=== PATIENT | male | born 1960 | race African-American/Black ===

== ENCOUNTER 2017-01-06 03:31 | Emergency (ER) | payer OTHER ==
[~2017-01-06] VITALS: Ht 188 cm; Wt 111.0 kg
[~2017-01-06 03:31] MED LIST: ALLOPURINOL300 MG PO; AUGMENTIN500TAB PO; AUGMENTIN875 MG OR; CYCLOBENZAPR10 MG PO; DOESN'T KNOW NAMES; FLEXERIL PO; GLIPIZIDE ER5 MG PO; GLIPIZIDE XL10 MG PO; GLIPIZIDE5 M1 PO; GLUCOPHAGE500 MG PO; LISINOPRIL20 MG PO; LORTAB 7.5 OR; LOVASTATIN20 M1 PO; LOVASTATIN20 MG PO; METFORMIN1000 MG PO; NAPROSYN500 MG PO; RYBIX ODT50 MG PO; TORADOL PO; ULTRAM50 M1 PO; VALIUM5 MG PO; ZPAK PO
[2017-01-06] MEDS ORDERED: LORTAB 1010 MG PO (05:20)
[2017-01-06] MEDS ORDERED: FLEXERIL PO (05:20)
[2017-01-06 05:37] VITALS: BP 123/78
== END 2017-01-06 05:40 | disposition home or self-care (01) | DRG 563 ==
LOC: ED 03:31
DX: S39.012A Strain of muscle, fascia and tendon of lower back, initial encounter (principal); M47.816 Spondylosis without myelopathy or radiculopathy, lumbar region; M54.30 Sciatica, unspecified side; I10 Essential (primary) hypertension; E78.5 Hyperlipidemia, unspecified; E11.9 Type 2 diabetes mellitus without complications; M10.9 Gout, unspecified; X58.XXXA Exposure to other specified factors, initial encounter; Z85.528 Personal history of other malignant neoplasm of kidney

== ENCOUNTER 2018-06-16 12:10 | Emergency (ER) | payer OTHER ==
[~2018-06-16] VITALS: Ht 188 cm; Wt 100.0 kg
[~2018-06-16 12:10] MED LIST changes: +IBUPROFEN600 MG PO; +LORTAB 1010 MG PO; +MEDDOSEPAK PO
[2018-06-16 12:58] LABS: HEMOGLOBIN 13.4 g/dl (14.0-18.0); IMMATURE GRANULOCYTES 0.5 % (0.0-5.0); MEAN CELL VOLUME 79.8 fL CALC (80.0-100.0); MEAN CORPUSCULAR HGB 25.6 pG CALC (26.0-32.0); MEAN CORPUSCULAR HGB CONC 32.1 g/L CALC (32.0-36.0); NEUT# 6.95 thou/uL (1.82-7.42); RED BLOOD COUNT 5.24 mill/uL (4.70-6.10); RED CELL DISTRI WIDTH 14.4 % (11.5-15.5)
[2018-06-16 13:09] LABS: HEMATOCRIT 41.8 % (39.0-50.0)
[2018-06-16 13:12] LABS: ALBUMIN 4.6 g/dL (3.2-5.0); ALKALINE PHOSPHATASE 88 u/l (38-126); ANION GAP 19 (6-22 (CALC)); BUN 18 mg/dL (9-20); BUN/CREATININE RATIO 10 (12-20 (CALC)); CARBON DIOXIDE 21 mmol/l (22-30); CHLORIDE 104 mmol/l (95-108); CREATININE 1.7 mg/dL (0.7-1.3); GFR 42 ML/MIN (>=60 (CALC)); GFR FOR AFR.AMER. 50 ML/MIN (>=60 (CALC)); LIPASE 130 u/l (23-300); POTASSIUM 4.4 mmol/l (3.5-5.1); SGOT/AST 21 u/l (17-59); SODIUM 140 mmol/l (137-146); TOTAL PROTEIN 7.7 g/dL (6.3-8.2)
[2018-06-16 16:15] VITALS: BP 104/66
== END 2018-06-16 16:21 | disposition short-term general hospital (02) | DRG 312 ==
LOC: ED 12:10
PROVIDERS: Emergency Medicine
DX: R55 Syncope and collapse (principal); I95.9 Hypotension, unspecified; R00.0 Tachycardia, unspecified; E11.9 Type 2 diabetes mellitus without complications; I10 Essential (primary) hypertension

== ENCOUNTER 2020-04-23 07:46 | Emergency (ER) | payer OTHER ==
[~2020-04-23] VITALS: Ht 188 cm; Wt 101.0 kg
[2020-04-23] MEDS ORDERED: ATENOLOL25 MG PO (07:59)
[2020-04-23] MEDS ORDERED: TAMSULOSIN HCL0.4 MG PO (08:00)
[2020-04-23] MEDS ORDERED: ELIQUIS5 MG PO (08:00)
[2020-04-23] MEDS ORDERED: LISINOPRIL10 MG PO (08:00)
[2020-04-23] MEDS ORDERED: ALLOPURINOL100 MG PO (08:01)
[2020-04-23] MEDS ORDERED: EZALLOR SPRINKL20 MG PO (08:01)
[2020-04-23] MEDS ORDERED: CETIRIZINE10 MG PO (08:02)
[2020-04-23] MEDS ORDERED: [UNRECOGNIZED DRUG - OTHER] IN (08:02)
[2020-04-23 08:38] LABS: ALBUMIN 4.6 g/dL (3.2-5.0); ALKALINE PHOSPHATASE 106 u/l (38-126); ANION GAP 15 (6-22 (CALC)); BILIRUBIN, TOTAL 0.9 mg/dL (0.0-1.4); BUN 16 mg/dL (9-20); BUN/CREATININE RATIO 15 (12-20 (CALC)); CARBON DIOXIDE 25 mmol/l (22-30); CHLORIDE 99 mmol/l (95-108); CREATININE 1.1 mg/dL (0.7-1.3); GFR > 60 ML/MIN (>=60 (CALC)); GFR FOR AFR.AMER. > 60 ML/MIN (>=60 (CALC)); POTASSIUM 4.4 mmol/l (3.5-5.1); SGOT/AST 36 u/l (17-59); SODIUM 134 mmol/l (137-146); TOTAL PROTEIN 7.9 g/dL (6.3-8.2)
[2020-04-23 08:39] LABS: IMMATURE GRANULOCYTES 0.2 % (0.0-5.0); MEAN CELL VOLUME 75.9 fL CALC (80.0-100.0); MEAN CORPUSCULAR HGB 25.7 pG CALC (26.0-32.0); MEAN CORPUSCULAR HGB CONC 33.8 g/dL CAL (32.0-36.0); NEUT# 1.88 thou/uL (1.82-7.42); RED BLOOD COUNT 4.36 mill/uL (4.70-6.10); RED CELL DISTRI WIDTH 14.3 % (11.5-15.5)
[2020-04-23 08:41] LABS: HEMATOCRIT 33.1 % (39.0-50.0); HEMOGLOBIN 11.2 g/dl (14.0-18.0)
[2020-04-23 09:23] VITALS: BP 135/77
== END 2020-04-23 09:24 | disposition home or self-care (01) | DRG 93 ==
LOC: ED 07:46
PROVIDERS: Student in an Organized Health Care Education/Training Program
DX: R20.2 Paresthesia of skin (principal); I10 Essential (primary) hypertension; E11.9 Type 2 diabetes mellitus without complications; M10.9 Gout, unspecified; Z85.528 Personal history of other malignant neoplasm of kidney; Z79.84 Long term (current) use of oral hypoglycemic drugs

== ENCOUNTER 2020-09-16 03:14 | Emergency (ER) | payer OTHER ==
[~2020-09-16] VITALS: Ht 188 cm; Wt 100.0 kg
[~2020-09-16 03:14] MED LIST changes: +ALLOPURINOL100 MG PO; +ATENOLOL25 MG PO; +CETIRIZINE10 MG PO; +ELIQUIS5 MG PO; +EZALLOR SPRINKL20 MG PO; +LISINOPRIL10 MG PO; +TAMSULOSIN HCL0.4 MG PO; +[UNRECOGNIZED DRUG - OTHER] IN
[2020-09-16 04:20] LABS: HEMATOCRIT 32.6 % (39.0-50.0); HEMOGLOBIN 10.9 g/dl (14.0-18.0); MEAN CELL VOLUME 79.3 fL CALC (80.0-100.0); MEAN CORPUSCULAR HGB 26.5 pG CALC (26.0-32.0); MEAN CORPUSCULAR HGB CONC 33.4 g/dL CAL (32.0-36.0); NEUT# 1.77 thou/uL (1.82-7.42); RED BLOOD COUNT 4.11 mill/uL (4.70-6.10); RED CELL DISTRI WIDTH 13.7 % (11.5-15.5)
[2020-09-16 04:21] LABS: URINE BILIRUBIN - DIPSTICK NEGATIVE (NEGATIVE); URINE BLOOD DIPSTICK NEGATIVE (NEGATIVE); URINE COLOR YELLOW; URINE GLUCOSE - DIPSTICK NEGATIVE (NEGATIVE); URINE KETONE NEGATIVE (NEGATIVE); URINE LEUK ESTERASE NEGATIVE (NEGATIVE); URINE PH 5.5 (4.5-8.0); URINE PROTEIN - DIPSTICK NEGATIVE (NEG-TRACE); URINE UROBILINOGEN - DIPSTICK 0.2 E.U./dL (0.2)
[2020-09-16 04:25] LABS: URINE NITRITE - DIPSTICK NEGATIVE (Negative)
[2020-09-16 04:29] LABS: ALBUMIN 4.5 g/dL (3.2-5.0); ALKALINE PHOSPHATASE 74 u/l (38-126); ANION GAP 15 (6-22 (CALC)); BILIRUBIN, TOTAL 0.7 mg/dL (0.0-1.4); BUN 22 mg/dL (9-20); BUN/CREATININE RATIO 18 (12-20 (CALC)); CARBON DIOXIDE 26 mmol/l (22-30); CHLORIDE 99 mmol/l (95-108); CREATININE 1.2 mg/dL (0.7-1.3); GFR > 60 ML/MIN (>=60 (CALC)); GFR FOR AFR.AMER. > 60 ML/MIN (>=60 (CALC)); POTASSIUM 4.2 mmol/l (3.5-5.1); SGOT/AST 38 u/l (17-59); SODIUM 136 mmol/l (137-146); TOTAL PROTEIN 7.9 g/dL (6.3-8.2)
[2020-09-16 05:57] VITALS: BP 148/81
[2020-09-16] MEDS ORDERED: ORPHENADRINE100 MG PO (06:12)
[2020-09-16] MEDS ORDERED: IBUPROFEN600 MG PO (06:12)
== END 2020-09-16 06:25 | disposition home or self-care (01) | DRG 552 ==
LOC: ED 03:14
PROVIDERS: Emergency Medicine
DX: M54.5 Low back pain (principal); K66.0 Peritoneal adhesions (postprocedural) (postinfection); E11.9 Type 2 diabetes mellitus without complications; I10 Essential (primary) hypertension; M10.9 Gout, unspecified; Z79.84 Long term (current) use of oral hypoglycemic drugs; Z85.528 Personal history of other malignant neoplasm of kidney
CPT/HCPCS: Q9967

== ENCOUNTER 2020-12-08 09:29 | Day surgery (SDC) | payer OTHER ==
[~2020-12-08] VITALS: Ht 188 cm; Wt 99.8 kg
[~2020-12-08 09:29] MED LIST changes: +GLIPIZIDE ER10 M1 PO; +ORPHENADRINE100 MG PO; +VICTOZA18 MG/3 ML SC; +[UNRECOGNIZED DRUG - OTHER]; -[UNRECOGNIZED DRUG - OTHER] IN
[2020-12-08 12:23] VITALS: BP 150/94
== END 2020-12-08 11:48 | disposition home or self-care (01) | DRG 951 ==
LOC: ENDO 09:29
PROVIDERS: ATTEND Surgery
PROC: 0DBN8ZX Excision of Sigmoid Colon, Via Natural or Artificial Opening Endoscopic, Diagnostic (ICD-10-PCS; principal; 2020-12-08)
PROC: 0DBL8ZX Excision of Transverse Colon, Via Natural or Artificial Opening Endoscopic, Diagnostic (ICD-10-PCS; 2020-12-08)
DX: Z12.11 Encounter for screening for malignant neoplasm of colon (principal); D12.5 Benign neoplasm of sigmoid colon; D12.3 Benign neoplasm of transverse colon; K64.8 Other hemorrhoids; E11.9 Type 2 diabetes mellitus without complications; I10 Essential (primary) hypertension; Z79.84 Long term (current) use of oral hypoglycemic drugs

== ENCOUNTER 2020-12-12 01:34 | Emergency (ER) | payer OTHER ==
[~2020-12-12] VITALS: Ht 188 cm; Wt 101.0 kg
[2020-12-12 02:11] LABS: URINE BILIRUBIN - DIPSTICK NEGATIVE (NEGATIVE); URINE BLOOD DIPSTICK NEGATIVE (NEGATIVE); URINE COLOR YELLOW; URINE GLUCOSE - DIPSTICK 500 mg/dL (NEGATIVE); URINE KETONE NEGATIVE (NEGATIVE); URINE LEUK ESTERASE NEGATIVE (NEGATIVE); URINE PROTEIN - DIPSTICK NEGATIVE (NEG-TRACE); URINE SPECIFIC GRAVITY 1.015; URINE UROBILINOGEN - DIPSTICK 0.2 E.U./dL (0.2)
[2020-12-12 02:11] LABS: HEMATOCRIT 34.7 % (39.0-50.0); HEMOGLOBIN 11.5 g/dl (14.0-18.0); IMMATURE GRANULOCYTES 0.3 % (0.0-5.0); MEAN CORPUSCULAR HGB 26.5 pG CALC (26.0-32.0); MEAN CORPUSCULAR HGB CONC 33.1 g/dL CAL (32.0-36.0); NEUT# 1.63 thou/uL (1.82-7.42); RED BLOOD COUNT 4.34 mill/uL (4.70-6.10); RED CELL DISTRI WIDTH 14.1 % (11.5-15.5)
[2020-12-12 02:16] LABS: URINE NITRITE - DIPSTICK NEGATIVE (Negative)
[2020-12-12 02:27] LABS: ALBUMIN 4.6 g/dL (3.2-5.0); ALKALINE PHOSPHATASE 110 u/l (38-126); ANION GAP 14 (6-22 (CALC)); BILIRUBIN, TOTAL 0.8 mg/dL (0.0-1.4); BUN 19 mg/dL (9-20); BUN/CREATININE RATIO 16 (12-20 (CALC)); CARBON DIOXIDE 25 mmol/l (22-30); CHLORIDE 100 mmol/l (95-108); CREATININE 1.2 mg/dL (0.7-1.3); GFR > 60 ML/MIN (>=60 (CALC)); GFR FOR AFR.AMER. > 60 ML/MIN (>=60 (CALC)); POTASSIUM 4.2 mmol/l (3.5-5.1); SGOT/AST 25 u/l (17-59); SODIUM 135 mmol/l (137-146); TOTAL PROTEIN 7.6 g/dL (6.3-8.2)
[2020-12-12 02:38] LABS: MYOGLOBIN 34 ng/mL (0 - 121)
[2020-12-12 02:55] VITALS: BP 132/65
== END 2020-12-12 02:55 | disposition home or self-care (01) | DRG 639 ==
LOC: ED 01:34
PROVIDERS: Emergency Medicine
DX: E11.65 Type 2 diabetes mellitus with hyperglycemia (principal); I10 Essential (primary) hypertension; E78.00 Pure hypercholesterolemia, unspecified; Z79.84 Long term (current) use of oral hypoglycemic drugs

== ENCOUNTER 2022-08-11 22:35 | Emergency (ER) | payer OTHER ==
[~2022-08-11] VITALS: Ht 188 cm; Wt 108.0 kg
[2022-08-11 22:47] VITALS: BP 146/91
[2022-08-11 23:00] VITALS: BP 142/89
[2022-08-11 23:11] LABS: BASO% 0.6 % (0-3); EOS% 1.3 % (0-8); HEMATOCRIT 40.5 % (39.0-50.0); HEMOGLOBIN 13.4 g/dl (14.0-18.0); IMMATURE GRANULOCYTES 0.2 % (0.0-5.0); LYMPH% 14.2 % (15-41); MEAN CELL VOLUME 80.4 fL CALC (80.0-100.0); MEAN CORPUSCULAR HGB 26.6 pG CALC (26.0-32.0); MEAN CORPUSCULAR HGB CONC 33.1 g/dL CAL (32.0-36.0); MONO% 14.4 % (2-13); NEUT# 3.33 thou/uL (1.82-7.42); NEUT% 69.3 % (42-76); RED BLOOD COUNT 5.04 mill/uL (4.70-6.10)
[2022-08-11 23:15] VITALS: BP 145/90
[2022-08-11 23:21] LABS: ALBUMIN 4.8 g/dL (3.2-5.0); ALKALINE PHOSPHATASE 75 u/l (38-126); ANION GAP 14 (6-22 (CALC)); BILIRUBIN, TOTAL 1.1 mg/dL (0.2-1.3); BUN 18 mg/dL (8-23); BUN/CREATININE RATIO 13 (12-20 (CALC)); CARBON DIOXIDE 24 mmol/l (22-30); CHLORIDE 102 mmol/l (95-108); CREATININE 1.4 mg/dL (0.7-1.3); GFR FOR AFR.AMER. > 60 ML/MIN (>=60 (CALC)); GFR OTHER RACES 51 ML/MIN (>=60 (CALC)); POTASSIUM 4.4 mmol/l (3.5-5.1); SGOT/AST 28 u/l (19-48); SODIUM 136 mmol/l (137-146); TOTAL PROTEIN 7.9 g/dL (6.3-8.2)
[2022-08-11 23:30] VITALS: BP 141/93
[2022-08-11 23:45] VITALS: BP 145/90
[2022-08-11] MEDS ORDERED: PAXLOVID PO (23:49)
[2022-08-11 23:53] VITALS: BP 145/90
[2022-08-12] MEDS ORDERED: PAXLOVID PO ×2 (11:49)
== END 2022-08-12 | disposition home or self-care (01) | DRG 179 ==
LOC: ED 22:35
PROVIDERS: Family Medicine
DX: U07.1 COVID-19 (principal); R09.81 Nasal congestion; R05.9 Cough, unspecified; I10 Essential (primary) hypertension; E11.9 Type 2 diabetes mellitus without complications; E78.00 Pure hypercholesterolemia, unspecified; Z79.84 Long term (current) use of oral hypoglycemic drugs

== ENCOUNTER 2023-04-30 20:04 | Emergency (ER) | payer OTHER ==
[2023-04-30] VITALS (13 sets, daily range): BP systolic 120–144; BP diastolic 76–91
[~2023-04-30] VITALS: Ht 188 cm; Wt 98.0 kg
[~2023-04-30 20:04] MED LIST changes: +PAXLOVID PO
[2023-04-30] MEDS ORDERED: ASPIRIN 81 MG/TAB PO ONE (20:30)
[2023-04-30 20:58] LABS: BASO% 1.2 % (0-3); EOS% 2.3 % (0-8); HEMATOCRIT 39.9 % (39.0-50.0); HEMOGLOBIN 13.2 g/dl (14.0-18.0); IMMATURE GRANULOCYTES 0.2 % (0.0-5.0); LYMPH% 39.6 % (15-41); MEAN CORPUSCULAR HGB 26.1 pG CALC (26.0-32.0); MEAN CORPUSCULAR HGB CONC 33.1 g/dL CAL (32.0-36.0); MONO% 12.9 % (2-13); NEUT# 1.87 thou/uL (1.82-7.42); NEUT% 43.8 % (42-76); RED BLOOD COUNT 5.05 mill/uL (4.70-6.10); RED CELL DISTRI WIDTH 14.9 % (11.5-15.5)
[2023-04-30 21:13] LABS: ALBUMIN 4.7 g/dL (3.2-5.0); ALKALINE PHOSPHATASE 57 u/l (38-126); AMYLASE 116 u/l (30-110); ANION GAP 13 (6-22 (CALC)); BILIRUBIN, TOTAL 0.9 mg/dL (0.2-1.3); BUN 23 mg/dL (8-23); BUN/CREATININE RATIO 14 (12-20 (CALC)); CARBON DIOXIDE 22 mmol/l (22-30); CHLORIDE 108 mmol/l (95-108); CREATININE 1.6 mg/dL (0.7-1.3); GFR FOR AFR.AMER. 53 ML/MIN (>=60 (CALC)); GFR OTHER RACES 44 ML/MIN (>=60 (CALC)); LIPASE 263 u/l (23-300); POTASSIUM 4.4 mmol/l (3.5-5.1); SGOT/AST 35 u/l (19-48); SODIUM 138 mmol/l (137-146); TOTAL PROTEIN 7.4 g/dL (6.3-8.2)
[2023-04-30 21:15] LABS: ACT PARTIAL THROMBO TIME 25.7 SECONDS (20.0-32.5); INTERNATIONAL NORMALIZED RATIO 1.1 RATIO (0.7-1.3); PROTHROMBIN TIME 10.4 SECONDS (9.0-12.5)
[2023-04-30 21:18] LABS: URINE BILIRUBIN - DIPSTICK Negative (NEGATIVE); URINE BLOOD DIPSTICK Negative (NEGATIVE); URINE GLUCOSE - DIPSTICK >=1000 mg/dL (NEGATIVE); URINE KETONE Negative (NEGATIVE); URINE LEUK ESTERASE Negative (NEGATIVE); URINE NITRITE - DIPSTICK Negative (Negative); URINE PH 5.5 (4.5-8.0); URINE PROTEIN - DIPSTICK Negative (NEG-TRACE); URINE SPECIFIC GRAVITY 1.015; URINE UROBILINOGEN - DIPSTICK 0.2 E.U./dL (0.2)
[2023-04-30 21:19] LABS: URINE COLOR Yellow
[2023-04-30] MEDS ORDERED: LACTATED RINGER'S 1,000 ML IV ONE (21:55)
[2023-04-30] MEDS ORDERED: KETOROLAC TROMETHAMINE 30 MG/ML SDV IM ONE (21:55)
== END 2023-04-30 23:01 | disposition home or self-care (01) | DRG 206 ==
LOC: ED 20:04
PROVIDERS: Family Medicine
DX: M94.0 Chondrocostal junction syndrome [Tietze] (principal); I10 Essential (primary) hypertension; E11.9 Type 2 diabetes mellitus without complications; E78.00 Pure hypercholesterolemia, unspecified; Z79.84 Long term (current) use of oral hypoglycemic drugs